=== PATIENT | female | born 1950 | race Caucasian/White ===

== ENCOUNTER 2020-10-26 09:30 | Outpatient (RCR) | payer MEDICARE, SELFPAY ==
--- NOTE | 2020-10-05 10:35 | PTOPEVAL ---
PHYSICAL THERAPY EVALUATION AND PLAN OF CARE 10-05-2020 Thank you for referring Luiza Renee to [facility] [place].? She is scheduled to be seen for therapy? 2 x/week for 3 weeks. Please review, sign, date and return this plan of care ERINN. I agree with and certify that the following plan of care is medically necessary. Referring Physician Date Attending Provider: Toshia Fajardo NP *PT Outpatient Evaluation Document 10/05/20 09:25 ROMEL (Rec: 10/05/20 10:35 ROMEL [id number]) Outpatient Past Medical History Past Medical History Source of Past Medical History Patient Neurological History Hx Neurological Disorders No Significant History Cardiovascular History Hx Cardiac Disorders No Significant History Respiratory History Hx Respiratory Disorders No Significant History Gastrointestinal History Hx Gastrointestinal Disorders No Significant History Genitourinary History Hx Genitourinary Disorders No Significant History Musculoskeletal History Hx Arthritis Yes: high rheumatolgy numbers high in bloodwork ; Hx Other Musculoskeletal Disorders Yes: previous PT for neck/ continue neck pain Hematological History Hx Hematological Disorders No Significant History Endocrine History Hx Endocrine Disorders No Significant History HEENT History Hx Meniere's Syndrome Yes: deaf L ear, B hearing Integumentary History Hx Skin Disorders No Significant History Reproductive History Hx Reproductive Disorders No Significant History Evaluation Information Problem Diagnosis OA R hip, with mild OA, lumbar degenerative disc Onset Jul 29, 2020 Subjective Information gradual increase in pain, no Query Text:As Reported By Patient/ recent trauma or injury; over Family time, have loss of flexibility in R hip and recently pain increased; less walking tolerance with walking for fitness; was offered pain med from , but did not want to take it; take aleve past few days-- feel is it helping; Diagnostic Tests X-Rays For This Problem Yes: x ray of back and R hip MRI For This Problem No Other Tests For This Problem No Previous Treatments Previous Treatments For This Problem years ago, PT for low back/ SI issues and PT for neck Prior Level of Function Activity Level (Last 3 Months) Occupation retired Hand Dominance Right Activity of Daily Living Ability Independent Indoor/Home Mobility Indepen
--- NOTE | 2020-10-26 11:47 | PTOPEVAL ---
PHYSICAL THERAPY DISCHARGE 10-26-2020 Refer to the clinical summary section below for a comparison of her status from the initial evaluation to today. Luiza will be discharged from PT at this time. The goals were partially achieved. Thank you for referring Luiza Renee to [facility].? Please review, sign, date and return this discharge ERINN. I agree with and certify that the following plan of care is medically necessary. Referring Physician Date Attending Provider: Toshia Fajardo NP PT Outpatient Discharge Document 10/26/20 09:33 ROMEL (Rec: 10/26/20 10:10 ROMEL [id number]) Subjective Information Luiza reports: have been doing Query Text:As Reported By Patient/ her home exercises; less Family flexible today due to the cold and not taken aleve for past few days due to having COVID injection; is going to see a branch lead at [place] at the end of October about her hip; does not want to have surgery on it yet. Pain Assessment Timing of Pain Assessment Timing of Pain Assessment Assessment Pain Scale Pain Scale Used Numeric (1 - 10) Self Report Pain Assessment Right Hip(s) Reported Pain Level 3 Pain Frequency Chronic Lowest Pain Intensity 1 Greatest Pain Intensity 5 Additional Pain Comments no problems with sleeping, reposition;can lie on R side few minutes Pain Score Pain Score 3: Self Report Additional Pain Score Comments aleve helps, did not take past few days due to having COVID injection; sit to stand is stiff, but once walk few steps is better; Interventions Used Interventions Used By Clinicians Exercise Lower Extremity Range of Motion General Lower Extremity Range of Motion Gross Lower Extremity Range of Motion supine R hip flexion 105';hip Comments and knee 90: hip IR 15', ER 45 '-- all increase R hip pain, with IR most painful; piriformis stretch- not cross midline of her body; Long sitting: piriformis and hip ER stretch; Lower Extremity Muscle Strength Testing General Lower Extremity Strength Gross Lower Extremity Strength single leg standing 30 sec with good stability; side lying hip abduction 10': 3# ankle wt x 30 reps;
== END 2020-10-30 08:00 | disposition home or self-care (01) ==
LOC: ANHPT 09:30
DX: M25.551 Pain in right hip (principal); M16.10 Unilateral primary osteoarthritis, unspecified hip; M79.18 Myalgia, other site
CPT/HCPCS: 97014; 97110; 97161; G0283

== ENCOUNTER 2020-12-20 07:56 | Emergency (ER) | payer MEDICARE, SELFPAY ==
[2020-12-20] VITALS (16 sets, daily range): BP systolic 117–127; BP diastolic 57–69; PULSE 69–93; RESP 11–21; TEMP 36.8; O2SAT 97–100
--- NOTE | ~2020-12-20 | XR_ITS ---
EXAMINATION: XR chest 2V 12/20/2020 08:58 INDICATION: Chest pain and heart palpitations PROCEDURE: 2 views of the chest COMPARISON: 10/05/2018 FINDINGS: The lungs are clear. The cardiomediastinal silhouette is within normal limits. There are no pleural effusions. There is no pneumothorax suspected. There are healed left rib fractures. IMPRESSION: 1: NO ACUTE CARDIOPULMONARY DISEASE. Reviewed, dictated and finalized at location A.
--- NOTE | 2020-12-20 08:09 | ECG_ITS ---
Measurements Intervals [place] Rate: 83 P: 73 [place]: 151 QRS: 68 QRSD: 82 T: 63 QT: 354 QTc: 418 Interpretive Statements SINUS RHYTHM BORDERLINE ST ABNORMALITY- INF/LAT LEADS BORDERLINE ECG Electronically Signed On 12-20-2020 9:17:24 CDT by Abdoulaye Gloria D.O.
--- NOTE | 2020-12-20 08:14 | ED.ARRPALP ---
HPI - Arrhythmia/Palpitations General Chief Complaint: Arrhythmia/Palpitations Stated Complaint: woke up with fast heart rate Time Seen by Provider: 12/20/20 08:01 Source: RN notes reviewed History of Present Illness HPI narrative: Patient presents emergency department from home for heart palpitations. Patient states that this morning she awoke and felt like her heart was racing she states she has a home pulse ox and that demonstrated a heart rate ranging from 90 up to 160 that was a regular that time she called her daughter who is an ER physician recommend she come to the emergency department for further evaluation she states she noted mild dizziness with the symptoms but that has resolved at this time she denies any palpitation she denies any recent illness denies any fever chills chest pain abdominal pain nausea vomiting or any other symptoms Related Data Home Medications Medication Instructions Recorded Confirmed atorvastatin 20 mg PO DAILY 12/20/20 progesterone micronized 100 mg PO QAM 12/20/20 sertraline [Zoloft] 25 mg PO DAILY 12/20/20 Allergies Allergy/AdvReac Type Severity Reaction Status Date / Time ibuprofen Allergy Intermediate LEG Verified 12/20/20 08:09 SWELLING, RASH meperidine Allergy Intermediate SEIZURES Verified 12/20/20 08:09 Review of Systems Review of Systems: Narrative: Gen.: Denies fevers or chills Eyes: Denies eye pain or visual change ENT: Denies congestion Respiratory: Denies shortness of breath or cough CV: See HPI GI: Denies abdominal pain nausea, emesis or diarrhea Musculoskeletal: Denies back pain or muscle pain Neuro: Denies numbness, tingling, weakness or focal weakness Skin: Denies rash Except as documented, all other systems reviewed and negative COUNTS INCLUDE 234 BEDS AT THE [facility] Past Medical History Medical History (Updated 12/20/20 @ 10:03 by Wyatt Fernandez DO) Hypercholesterolemia Social History Social History (Updated 12/20/20 @ 08:24 by Wyatt Fernandez DO) Smoking status: Never smoker Exam Narrative: Exam Narrative: APPEARANCE: No acute distress, nontoxic, resting in bed EYES: EOMI HEENT: Normocephalic, atraumatic, OMM RESPIRATORY: No respiratory distress Clear to auscultation bilaterally with no rhonchi wheezing or rales. CARDIOVASCULAR: Regular rate and rhythm without murmurs rubs or gallops. ABDOMINAL: Soft, nontender, nondistended, no rebound or guarding MUSCULOSKELETAl: Moves all extremities. No clubbing, cyanosis or edema. NEURO: Awake and alert. Following commands, speech normal, no focal deficits SKIN:: Warm, dry. No rashes lesions or abrasions PSYCHIATRIC: Normal affect/mood, Course Course Emergency Course: Remained on personnel monitor throughout stay in ED with no arrhythmias noted Discussed with patient's PCP Dr. Mejía presentation work-up agrees with plan for outpatient follow-up and will plan to set a fit for Holter monitor as outpatient Discussed with patient results of workup and diagnosis. Discussed need for follow-up with primary care, proper use of medication, and reasons to return to the emergency department. Patient understands and agrees to current treatment plan Vital Signs Vital signs: Vital Signs Temperature 98.3 F 12/20/20 07:59 Pulse Rate 88 12/20/20 07:59 Respiratory Rate 18 12/20/20 07:59 Blood Pressure 117/61 12/20/20 07:59 Pulse Oximetry 99 12/20/20 07:59 Temperature 98.3 F 12/20/20 07:59 Pulse Rate 93 12/20/20 08:06 Respiratory Rate 18 12/20/20 08:06 Blood Pressure 127/69 12/20/20 08:06 Pulse Oximetry 98 12/20/20 08:06 MDM - Arrhythmia/Palpitations Lab Data Result diagrams: 12/20/20 08:13 12/20/20 08:13 Labs: Lab Results 12/20/20 12/20/20 12/20/20 Range/Units 08:13 08:13 08:13 WBC 3.6 L (4.5-10.0) K/mm3 RBC 4.21 (4.2-5.4) M/mm3 Hgb 12.9 (12.0-15.0) g/dL Hct 40.1 (37.0-47.0) % MCV 95.2 (80-100) fl MCH 30.6 (26-34) pg MCHC 32.2
[2020-12-20 08:27] LABS: Basophils Percent Auto 0.8 % (0.2-1.2); Eosinophils Absolute Auto 0.1 K/mm3 (0-0.3); Hematocrit 40.1 % (37.0-47.0); Hemoglobin 12.9 g/dL (12.0-15.0); Lymphocytes Absolute Auto 1.31 K/mm3 (0.9-3.2); Lymphocytes Percent Auto 36.1 % (18.3-44.2); Mean Corpuscular HGB Conc 32.2 g/dl (32-36); Mean Corpuscular Hemoglobin 30.6 pg (26-34); Mean Corpuscular Volume 95.2 fl (80-100); Mean Platelet Volume 11.1 fl (7.4-10.4); Monocytes Absolute Auto 0.6 K/mm3 (0.1-0.6); Monocytes Percent Auto 15.2 % (2.6-8.5); Neutrophils Absolute Auto 1.6 K/mm3 (1.3-6.7); Neutrophils Percent Auto 44.9 % (45.5-73.1); Platelet Count Result 179 k/mm3 (150-375); Red Blood Count 4.21 M/mm3 (4.2-5.4); Red Cell Distribution Width 13.6 % (11.5-14.5); White Blood Count 3.6 K/mm3 (4.5-10.0)
[2020-12-20 08:35] LABS: Add Urine Microscopic? YES; Amorphous Sediment Urine Few; Appearance Urine Cloudy (Clear); Bacteria Urine Trace /hpf; Bilirubin Urine Negative (Negative); Blood Urine 2+ (Negative); Color Urine Yellow (Yellow); Glucose Urine UA Negative (Negative); Ketones Urine Negative (Negative); Leukocyte Esterase Ur Negative LEU/UL (Negative); Mucus Urine Rare /lpf; Nitrate Urine Negative (Negative); Protein Urine 1+ mg/dL (Negative); RBC Urine 21-50 /hpf (0-2); Specific Grav Ur 1.016 (1.001-1.035); Squamous Epithelial Cell Urine Rare /hpf (Few); Urobilinogen Urine Negative mg/dL (<2.0)
[2020-12-20 08:38] LABS: Anion Gap 4 mmol/L (8-16); Blood Urea Nitrogen 25 mg/dL (7-17); Calcium 8.9 mg/dL (8.4-10.2); Carbon Dioxide 32 mmol/L (22-30); Chloride 107 mmol/L (98-107); Estimated CRCL calculation 53 ml/min; Estimated Glomerular Filt Rate > 60; Glucose 109 mg/dL (65-105); Potassium 3.7 mmol/L (3.4-5.0); Sodium 143 mmol/L (137-145)
[2020-12-20 08:39] LABS: Magnesium 1.9 mg/dL (1.6-2.3); Prothrombin Time 13.3 Seconds (11.1-14.7)
[2020-12-20 08:40] LABS: Partial Thromboplastin Time 29.2 SECONDS (22.3-36.8)
[2020-12-20 08:50] LABS: Troponin I < 0.012 ng/mL (0.000-0.034)
== END 2020-12-20 10:15 | disposition home or self-care (01) ==
PROVIDERS: Emergency Provider Emergency Medicine; PCP Internal Medicine
DX: R00.2 Palpitations (principal); E78.00 Pure hypercholesterolemia, unspecified; R94.31 Abnormal electrocardiogram [ECG] [EKG]
CPT/HCPCS: 36415; 71046; 80048; 81001; 83735; 84484; 85025; 85610; 85730; 93005; 99284